=== PATIENT | female | born 1995 | race Caucasian/White ===

== ENCOUNTER 2017-02-16 15:03 | Emergency (ER) | payer BC ==
[~2017-02-16] VITALS: Ht 165.1 cm; Wt 54.1 kg
[2017-02-16 15:08] VITALS: TEMP 36.6; Ht 165.1 cm; Wt 54.1 kg
[2017-02-16 15:19] VITALS: O2SAT 100
[2017-02-16] MEDS ORDERED: DiphenhydrAMINE HCL 50 MG/ML VIAL IV STA (15:24)
[2017-02-16] MEDS ORDERED: SODIUM CHLORIDE 0.9% 500ML 500 ML IV STA ×2 (15:24→16:10)
[2017-02-16] MEDS ORDERED: METHYLPREDNISOLONE 125 MG VIAL IV STA (15:24)
[2017-02-16] MEDS ORDERED: ONDANSETRON INJ 2 MG/ML 2 ML VIAL IV STA (15:24)
--- NOTE | 2017-02-16 15:28 | EMERGENCY ROOM VISIT NOTE ---
History Report prepared by Mike: Filiberto Norwood Under the Supervision of: Dr. Angelo Frey M.D. First contact with patient: 15:20 Chief Complaint: ALLERGIC REACTION Stated Complaint: ALLERGIC REACTION TO SESAME Nursing Triage Summary: I had an allergic reation to camille marvin today about 1230. I used my epi pen and I started to feel better, now I am vomiting again and feel like my lip is swelling History of Present Illness The patient is a 21 year old female who presents to the Emergency Room with complaints of a persistent allergic reaction that occurred around 3 hours ago. 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 The patient states that she used an epi pen a half hour after her symptoms began. She says that she then started to get nauseous with episodes of vomiting and a bit of shortness of breath. She adds that she also got dizzy. She states that the epi pen made her feel a bit better. The patient says that she went to sleep, but the nausea woke her back up, and she is vomiting again. She says that she is still dizzy and nauseous as well. The patient adds that she had a bit of tightness in her throat which is now somewhat better. She says that she is not sure if her lips are swollen, but she sometimes gets lip swelling after sesame exposure. The patient notes that the last time she had to come to the hospital for sesame exposure was a few years ago. She denies any hives or rashes during her allergic reactions. Source of History: patient Onset: 3 hours ago Position: other (global - allergic reaction) Quality: other (exposure to sesame) Timing: other (persistent) Associated Symptoms: + SOB, + nausea, + vomiting, No rash (or hives) Note: Associated symptoms: Throat tightness. Dizziness. Review of Systems See HPI for pertinent positives & negatives. A total of 10 systems reviewed and were otherwise negative. Past Medical & Surgical Medical Problems: (1) Allergic reaction (2) No chronic diseases present Family History No pertinent family history Social History Smoking Status: Never Smoker Marital Status: single Housing Status: lives with roommate Occupation Status: [employer] student Current/Historical Medications Scheduled Prednisone (Prednisone), 2 TAB PO DAILY Scheduled PRN Acetaminophen Tab (Tylenol), 650 MG PO DAILY PRN for Pain or Fever Allergies Coded Allergies: No Known Allergies (Unverified , 02/16/17) Physical Exam Vital Signs Date Time Temp Pulse Resp B/P (MAP) Pulse Ox O2 Delivery O2 Flow Rate FiO2 02/16/17 18:13 87 16 104/69 97 Room Air 02/16/17 16:49 81 16 115/77 99 Room Air 02/16/17 16:05 101 16 114/79 97 Room Air 02/16/17 15:25 83 02/16/17 15:19 100 Room Air 02/16/17 15:18 96 Room Air 02/16/17 15:08 36.6 107 18 124/82 94 Room Air Physical Exam GENERAL: Patient is in no acute distress. HEENT: No acute trauma, normocephalic atraumatic, mucous membranes moist, no nasal congestion, no scleral icterus. No uvular edema. NECK: No stridor, no adenopathy, no meningismus, trachea is midline. LUNGS: Clear to auscultation bilaterally, no wheeze, no rhonchi, breath sounds equal. HEART: Without murmurs gallops or rubs, regular rate and rhythm. ABDOMEN: Soft, nontender, bowel sounds positive, no hernias, no peritonitis. EXTREMITIES: No cyanosis or edema, full range of motion of all the joints without pain or difficulty, no signs for acute trauma. NEUROLOGIC: Oriented x 3, no acute motor or sensory deficits, no focal weakness. SKIN: No rash, no jaundice, no diaphoresis. Medical Decision & Procedures Medications Administered Medications (Trade) Dose Ordered Sig/Kimmie Route Start Time Stop Time Status Last Admin Dose Admin Ondansetron HCl (Zofran Inj) 4 mg NOW STAT IV 02/16/17 15:24 02/16/17 15:26 DC 02/16/17 15:39 4 MG Sodium Chloride 500 ml @ 999 mls/hr Q31M STAT IV 02/16/17 15:24 02/16/17 15:54 DC 02/16/17 15:37 999 MLS/HR Diphenhydramine HCl (Benadryl Inj) 25 mg NOW STAT IV 02/16/17 15:24 02/16/17 15:26 DC 02/16/17 15:39 25 MG Methylprednisolone Sodium Succinate (Solu-Medrol IV) 80 mg NOW STAT IV 02/16/17 15:24 02/16/17 15:26 DC 02/16/17 15:39 80 MG Sodium Chloride 500 ml @ 999 mls/hr Q31M STAT IV 02/16/17 16:10 02/16/17 16:40 DC 02/16/17 16:14 999 MLS/HR ED Course 1521: The patient was evaluated in room B6. A complete history and physical exam was performed. 1524: Ordered Solu-Medrol IV 80 mg IV, Benadryl Inj 25 mg IV, NSS 500 ml @ 999 mls/hr IV, Zofran Inj 4 mg IV. 1756: Reevaluated the patient and she is resting. Discussed results and discharge instructions: she verbalized understanding and agreement. The patient is ready for discharge. Medical Decision Differential diagnosis includes but is not limited to food allergy, acute allergic reaction, uvular edema, angioedema, wheezing. The patient presents with a reaction to sesame. She has a known allergy. She had used her EpiPen but did not have complete resolution of symptoms so she came to the ER. There is no uvular edema or facial edema. No hives. She is not hypoxic. Patient was given IV Solu-Medrol, IV Benadryl and IV Zofran. She received IV saline. She was watched here for around 3 hours. She feels markedly better, she is back to her baseline. The patient is being discharged to keep her EpiPen with her at all times. She will be on Benadryl and prednisone for the next few days, if worsening, she can return. Medication Reconcilliation Current Medication List: was personally reviewed by me Blood Pressure Screening Patient's blood pressure: Normal blood pressure Impression Primary Impression: Allergic reaction Additional Impression: Vomiting Scribe Attestation The scribe's documentation has been prepared under my direction and personally reviewed by me in its entirety. I confirm that the note above accurately reflects all work, treatment, procedures, and medical decision making performed by me. Departure Information Dispostion Home / Self-Care Prescriptions Prednisone (Prednisone) 20 Mg Tab 2 TAB PO DAILY for 4 Days, #8 TAB Prov: Angelo Frey M.D. 02/16/17 Referrals No Doctor, Assigned (PCP) [facility] Patient Instructions My [facility] Additional Instructions benadryl 1-2 tab 3x per day for 4 days keep epipen with you at all times and use as needed prednisone daily as directed for 4 more days return for worsening symptoms Problem Qualifiers Primary Impression: Allergic reaction Encounter type: initial encounter Qualified Codes: T78.40XA - Allergy, unspecified, initial encounter Additional Impression: Vomiting Vomiting type: unspecified Vomiting Intractability: non-intractable Nausea presence: unspecified Qualified Codes: R11.10 - Vomiting, unspecified
[2017-02-16] MEDS ORDERED: ACET325T96 PO (15:31)
[2017-02-16] MEDS ORDERED: PRED20TA PO (18:09)
[2017-02-16 18:13] VITALS: BP 104/69; PULSE 87; O2SAT 97
== END 2017-02-16 18:28 | disposition home or self-care (01) ==
LOC: C.EDB 15:06
DX: T78.40XA Allergy, unspecified, initial encounter (principal); X58.XXXA Exposure to other specified factors, initial encounter; R11.10 Vomiting, unspecified

== ENCOUNTER 2017-06-22 10:45 | Emergency (ER) | payer BC ==
[~2017-06-22] VITALS: Ht 165.1 cm; Wt 54.7 kg
[~2017-06-22 10:45] MED LIST: ACET325T96 PO
[2017-06-22 10:50] VITALS: TEMP 36.7; Ht 165.1 cm; Wt 54.7 kg
[2017-06-22] MEDS ORDERED: ONDANSETRON INJ 2 MG/ML 2 ML VIAL IV STA (11:31)
[2017-06-22] MEDS ORDERED: KETOROLAC TROMETHAMINE 30 MG/ML VIAL IV STA (11:31)
[2017-06-22] MEDS ORDERED: SODIUM CHLORIDE 0.9% 1000ML 1,000 ML IV ONE ×2 (11:45→12:15)
[2017-06-22 11:53] LABS: BASO % 0.4 %; BASO ABS # 0.03 K/uL (0-0.2); EOS % 1.8 %; EOS ABS # 0.15 K/uL (0-0.5); HEMATOCRIT 42.5 % (37-47); HEMOGLOBIN 14.4 g/dL (12.0-16.0); IG# 0.01 K/uL (0.00-0.02); LYMPH % 6.7 %; LYMPH ABS # 0.55 K/uL (1.2-3.4); MEAN CELL VOLUME 85.3 fL (80-100); MEAN CORPUSCULAR HEMOGLOBIN 28.9 pg (25-34); MEAN CORPUSCULAR HGB CONC 33.9 g/dl (32-36); MEAN PLATELET VOLUME 10.4 fL (7.4-10.4); MONO % 7.8 %; MONO ABS # 0.64 K/uL (0.11-0.59); NEUT % 83.2 %; NEUT ABS # 6.85 K/uL (1.4-6.5); PLATELET COUNT 241 K/uL (130-400); RED CELL DISTRIBUTION WIDTH CV 14.8 % (11.5-14.5); RED CELL DISTRIBUTION WIDTH SD 45.7 fL (36.4-46.3); WHITE BLOOD COUNT 8.23 K/uL (4.8-10.8)
[2017-06-22 12:04] VITALS: O2SAT 100
[2017-06-22 12:11] LABS: ALBUMIN 4.8 gm/dl (3.4-5.0); CREATININE 0.94 mg/dl (0.60-1.20); POTASSIUM 3.6 mmol/L (3.5-5.1)
[2017-06-22 12:14] LABS: TOTAL PROTEIN 9.2 gm/dl (6.4-8.2)
--- NOTE | 2017-06-22 12:15 | DIAGNOSTIC IMAGING REPORT ---
CHEST ONE VIEW PORTABLE CLINICAL HISTORY: cough, fever dyspnea COMPARISON STUDY: No previous studies for comparison. FINDINGS: The bones soft tissues and hemidiaphragms are normal. The cardiomediastinal silhouette is normal. The lungs are clear. The pulmonary vasculature is normal. IMPRESSION: Negative chest. The above report was generated using voice recognition software. It may contain grammatical, syntax or spelling errors. Electronically signed by: Babatunde Ramirez M.D. 06/22/2017 12:14 PM Dictated Date/Time: 06/22/2017 12:14 PM
[2017-06-22 12:22] LABS: INFLUENZA B ANTIGEN Neg for Influ B (NEG)
[2017-06-22] MEDS ORDERED: SODIUM CHLORIDE 0.9% 1000ML 1,000 ML IV STA (14:00)
[2017-06-22] MEDS ORDERED: ONDA4TAB10 SL (15:20)
[2017-06-22 15:40] VITALS: BP 94/58; PULSE 92; O2SAT 97
--- NOTE | 2017-06-22 21:10 | EMERGENCY ROOM VISIT NOTE ---
ED Visit Note First contact with patient: 11:16 Chief Complaint: Flu like symptoms. History of Present Illness: Ms. Manrique is a 22-year-old female who ambulates into the ED accompanied by female friend complaining of flulike symptoms. Historically patient has no previous significant respiratory slaps pulmonary diseases. Patient reports her symptoms started approximately 3 weeks ago with what she is describing as normal upper respiratory tract symptoms including runny noses, sinus congestion, sneezing and a mild sore throat.. She reports her symptoms have been getting worse over the last week and now she has worsening congestion, developed a headache, body aches, dizziness and nausea /vomiting. Currently she places heard discomfort over the bifrontal area and the top of the head. She describes this as a pressure sensation. She rates her discomfort 6/10. Her pain is nonradiating. She has not identified any aggravating or alleviating factors related to the pain. She has not been taken any medications for pain prior to arrival at the hospital. Her body aches are diffuse includes most of the larger joints and back but not the neck. Additionally she reports she started developing nausea and vomiting last night. She reports vomiting 5-6 times. Since the vomiting is started she is experiencing epigastric abdominal pain. She describes this as a pressure sensation. She rates this discomfort 6/10. Her pain is nonradiating. Her pain worsens with vomiting. She has not identified any alleviating factors related to the pain. She has not taken any medications for her pain or nausea. She continues to have sinus and nasal congestion and sore throat. Also associated with her flulike symptoms she reports she has been having lightheadedness and dizziness and has been having chills but no tracie fever. She also reports that she is mildly short of breath. Patient denies skin eruptions, skin color changes, hearing changes, visual changes, difficulty speaking, difficulty swallowing, difficulty walking/ coordinating body movements, ear drainage, painful talking, drooling, inability to swallow, neck pain/stiffness, cough, wheezing, hemoptysis, palpitations, chest pain, lower abdominal pain, diarrhea, constipation, rectal bleeding, black /tarry stools, urinary symptoms, hematuria, vaginal bleeding, vaginal discharge , lower extremity weakness/numbness/tingling. Review of Systems: As noted above in history of present illness. All body systems were reviewed and found to be negative as noted above. Past Medical History: As previously noted, pneumonia, ongoing evaluation of periumbilical abdominal pain, bleeding related to periumbilical abdominal pain, hematuria of unspecific causes. Current Medications: Patient denies. Allergies to Medications: Patient denies. Social History: Patient is currently University student; she feels safe in her home environment; she denies tobacco and alcohol use. Physical Examination: Vital Signs: Date Time Temp Pulse Resp B/P (MAP) Pulse Ox O2 Delivery O2 Flow Rate FiO2 06/22/17 15:40 92 22 94/58 97 06/22/17 14:59 100 18 107/70 96 Room Air 06/22/17 14:06 92 18 102/64 99 Room Air 06/22/17 13:36 90 97/61 100 Mask 2.0 98 100/70 118 102/61 06/22/17 12:30 88 20 106/63 100 Room Air 06/22/17 12:04 99 06/22/17 12:04 100 Oxymask 3.0 06/22/17 11:55 100 20 102/72 100 Room Air 109 116/79 117 06/22/17 11:28 97 Room Air 06/22/17 10:50 36.7 111 18 107/76 98 Room Air Positive orthostatic vital signs. GENERAL: 22-year-old female in moderate distress due to symptoms, mildly toxic- appearing, afebrile and hemodynamically stable. NEUROLOGICAL: Awake, alert and oriented to person, place and time. Answering questions appropriately and following commands. Normal gait. Good hand eye coordination. No focal motor or sensory deficits. SKIN: Warm, dry and pink. No soft tissue eruptions or trauma noted. HEENT: Atraumatic and normocephalic. No erythema or tenderness over the frontal or maxillary sinuses. External ears are nontender. Auditory canals are pink and patent. Tympanic membranes are pearly bass with normal light reflex. PERRLA. Sclera white and conjunctiva pink without drainage. No drainage from naris, but audible congestion. Oral cavity moist and pink. Uvula is midline and no abscesses are seen. Pharynx is mildly erythematous but not edematous. No tonsillar hypertrophy or exudates. Speech normal and clear. No lymphadenopathy. Trachea midline. No jugular venous distention. No laryngeal tenderness. BACK: No tenderness over the bony spine. No meningismus. Full range of motion of the cervical spine. No CVA tenderness. THORAX: Lungs sounds are clear to auscultation and equal bilaterally with symmetrical chest wall. Mild decrease in air movement in the bases. No wheezing, rales or rhonchi. No crepitus, tenderness, subcutaneous air or deformities noted. HEART: Initially tachycardic rate and rhythm. No gallops, rubs or murmurs are appreciated. No lifts, heaves or thrills. ABDOMEN: Flat and soft with mild tenderness in the epigastric area. And nontender. Positive bowel sounds in all quadrants. No guarding, rigidity or organomegaly. EXTREMITIES: Moves all extremities well on command and with purpose. All distal neurovascular statuses are intact and equal bilaterally. No calf tenderness or cords. ED Course: Patient is assessed as noted above. Patient's medication list was reviewed. Laboratory Testing: Test 06/22/17 11:20 Range/Units White Blood Count 8.23 4.8-10.8 K/uL Red Blood Count 4.98 4.2-5.4 M/uL Hemoglobin 14.4 12.0-16.0 g/dL Hematocrit 42.5 37-47 % Mean Corpuscular Volume 85.3 80-100 fL Mean Corpuscular Hemoglobin 28.9 25-34 pg Mean Corpuscular Hemoglobin Concent 33.9 32-36 g/dl Platelet Count 241 130-400 K/uL Mean Platelet Volume 10.4 7.4-10.4 fL Neutrophils (%) (Auto) 83.2 % Lymphocytes (%) (Auto) 6.7 % Monocytes (%) (Auto) 7.8 % Eosinophils (%) (Auto) 1.8 % Basophils (%) (Auto) 0.4 % Neutrophils # (Auto) 6.85 1.4-6.5 K/uL Lymphocytes # (Auto) 0.55 1.2-3.4 K/uL Monocytes # (Auto) 0.64 0.11-0.59 K/uL Eosinophils # (Auto) 0.15 0-0.5 K/uL Basophils # (Auto) 0.03 0-0.2 K/uL RDW Standard Deviation 45.7 36.4-46.3 fL RDW Coefficient of Variation 14.8 11.5-14.5 % Immature Granulocyte % (Auto) 0.1 % Immature Granulocyte # (Auto) 0.01 0.00-0.02 K/uL Urine Color YELLOW Urine Appearance CLEAR CLEAR Urine pH 6.5 4.5-7.5 Urine Specific [place] 1.025 1.000-1.030 Urine Protein NEG NEG Urine Glucose (UA) NEG NEG Urine Ketones 1+ NEG Urine Occult Blood NEG NEG Urine Nitrite NEG NEG Urine Bilirubin NEG NEG Urine Urobilinogen NEG NEG Urine Leukocyte Esterase NEG NEG Urine Test NEG NEG Sodium Level 134 136-145 mmol/L Potassium Level 3.6 3.5-5.1 mmol/L Chloride Level 100 98-107 mmol/L Carbon Dioxide Level 26 21-32 mmol/L Anion Gap 7.0 3-11 mmol/L Blood Urea Nitrogen 12 7-18 mg/dl Creatinine 0.94 0.60-1.20 mg/dl Est Creatinine Clear Calc Drug Dose 82.4 ml/min Estimated GFR () 101.2 Estimated GFR (Non- 87.3 BUN/Creatinine Ratio 12.9 10-20 Random Glucose 81 70-99 mg/dl Calcium Level 10.0 8.5-10.1 mg/dl Total Bilirubin 1.8 0.2-1 mg/dl Direct Bilirubin 0.2 0-0.2 mg/dl Aspartate Amino Transf (AST/SGOT) 20 15-37 U/L Alanine Aminotransferase (ALT/SGPT) 24 12-78 U/L Alkaline Phosphatase 80 45-117 U/L Total Protein 9.2 6.4-8.2 gm/dl Albumin 4.8 3.4-5.0 gm/dl Lipase 132 73-393 U/L Influenza Type A Antigen Neg for Influ A NEG Influenza Type B Antigen Neg for Influ B NEG Group A Streptococcus Screen: Negative. Cultures pending. Chest X-Rays: Were read by myself and the radiologist showing no acute infiltrates, effusions or pneumothorax. Normal heart silhouette and bony anatomy. No free air under the diaphragm. Patient was hydrated with approximately 2.5 L of normal saline, she received 4 mg of Zofran IV and 30 mg of Toradol IV. Patient was reassessed multiple times during her stay in the emergency department. Patient was trialed on a sample which and juice and had no return of nausea/ vomiting. Patient's case was reviewed with Dr. De Jesus; we agreed on diagnostic approach, treatment, disposition and plan. Patient was educated about today's findings and instructed on her treatment plan ; she verbalized understanding and agreement with this plan. Clinical Impression: Nausea and vomiting. Upper respiratory tract symptoms. Orthostatic hypotension. Decision-Making: Initially my differential diagnosis I considered sepsis, pneumonia, pulmonary embolism, influenza, hepatitis, pancreatitis and other causes. Disposition: Patient discharged home in stable condition accompanied by female friends; prior to departure she was reassessed and subjectively reported she was feeling much better and rated her overall discomfort 2/10 and had no return of nausea/vomiting. Plan: Patient was prescribed Zofran 4 mg every 6 hours as needed for nausea/vomiting. Patient was encouraged to alternate ibuprofen and acetaminophen as needed for pain or fevers. Patient was encouraged to stay well-hydrated with increased clear fluids. Patient was encouraged use a bland diet for the next 48 hours and avoid alcohol. Patient was encouraged to follow-up at [facility] for recheck in 2-3 days. Patient was encouraged return ED for worsening symptoms, uncontrolled fevers, bloody vomitus or any new/concerning symptoms.
== END 2017-06-22 15:41 | disposition home or self-care (01) ==
LOC: C.EDB 10:47 → C.EDC 15:41
DX: R11.2 Nausea with vomiting, unspecified (principal); I95.1 Orthostatic hypotension; Z87.01 Personal history of pneumonia (recurrent)